=== PATIENT | male | born 1995 | race Caucasian/White ===

== ENCOUNTER 2016-07-07 16:17 | Emergency (ER) | payer BC, OTHER ==
[2016-07-07 16:37] LABS: BASO % 0.3 % (0.2-1.2); EOS % 0.6 % (0.8-7.0); GRAN # 3.4 10_X3_uL (1.8-5.4); GRAN % 52.6 % (34.0-67.9); HEMATOCRIT 46.1 % (40-51); HEMOGLOBIN 16.8 g/dL (13.7-17.5); LYMPH % 30.6 % (21.8-53.1); MEAN CORPUSCULAR HEMOGLOBIN 31.4 pg (27.0-33.0); MEAN CORPUSCULAR HGB CONC 36.4 g/dL (32.0-36.0); MEAN CORPUSCULAR VOLUME 86.2 fL (79-92); MEAN PLATELET VOLUME 11.5 fl (7.5-11.5); MONO % 15.9 % (5.3-12.2); PLATELET COUNT 216 x10_3/uL (163-337); RED BLOOD COUNT 5.35 x10_6/uL (4.6-6.1); RED CELL DISTRIBUTION WIDTH 12.5 % (11.6-14.4); WHITE BLOOD COUNT 6.5 x10_3/uL (4.2-9.1)
[2016-07-07 16:57] LABS: BLOOD UREA NITROGEN 14 mg/dL (7-18); CALCIUM 9.1 mg/dL (8.7-10.7); CARBON DIOXIDE 20 mmol/L (21-32); CREATININE 1.2 mg/dL (0.6-1.3); GLUCOSE,RANDOM 93 mg/dL (70-99); POTASSIUM 3.4 mmol/L (3.5-5.1); SODIUM 142 mmol/L (136-145)
== END 2016-07-07 20:20 | disposition home or self-care (01) ==
LOC: ER 16:17
PROVIDERS: Emergency Medicine
DX: A08.4 Viral intestinal infection, unspecified (principal); R10.31 Right lower quadrant pain; R11.2 Nausea with vomiting, unspecified; R19.7 Diarrhea, unspecified
CPT/HCPCS: 36415; 80048; 85025; 96361; 96374; 99070; 99284-25; J8597